=== PATIENT | male | born 1955 | race Asian ===

== ENCOUNTER 2022-04-09 05:20 | Emergency (ER) | payer OTHER ==
[~2022-04-09] VITALS: Ht 167.6 cm; Wt 70.5 kg
[2022-04-09] MEDS ORDERED: IBUPROFEN 600 MG TABLET PO ONE (06:45)
[2022-04-09] MEDS ORDERED: SODIUM CHLORIDE 0.9% 250 ML IRRIG SOLUTION BOTTLE IRRIG ONE (06:45)
[2022-04-09] MEDS ORDERED: PERTUSS(ACELL),DIPH,TET VAC/PF 0.5 ML SYRINGE IM. ONE (06:45)
[2022-04-09] MEDS ORDERED: LIDOCAINE 1% 10 ML VIAL ID ONE (08:15)
[2022-04-09 08:46] VITALS: BP 153/98
[2022-04-09] MEDS ORDERED: CEPH-558 PO (08:47)
[2022-04-09] MEDS ORDERED: HYDR-4723 PO (08:47)
== END 2022-04-09 09:06 | disposition home or self-care (01) ==
LOC: EMS 05:20
DX: S67.21XA Crushing injury of right hand, initial encounter (principal); S61.212A Laceration without foreign body of right middle finger without damage to nail, initial encounter; W23.0XXA Caught, crushed, jammed, or pinched between moving objects, initial encounter; Y93.89 Activity, other specified; Y92.89 Other specified places as the place of occurrence of the external cause; Y99.8 Other external cause status
CPT/HCPCS: 12001; 73110; 73130; 90471; 90715; 99284; J3490

== ENCOUNTER 2022-04-22 07:46 | Emergency (ER) | payer OTHER ==
[~2022-04-22] VITALS: Ht 167.6 cm; Wt 63.6 kg
[~2022-04-22 07:46] MED LIST: CEPH-558 PO; HYDR-4723 PO
[2022-04-22 07:54] VITALS: BP 148/92
[2022-04-22] MEDS ORDERED: SITA50 PO (07:57)
== END 2022-04-22 08:38 | disposition home or self-care (01) ==
LOC: EMS 07:47
DX: S61.212D Laceration without foreign body of right middle finger without damage to nail, subsequent encounter (principal); Z48.02 Encounter for removal of sutures; Z79.899 Other long term (current) drug therapy; W45.8XXD Other foreign body or object entering through skin, subsequent encounter
CPT/HCPCS: 99281; Z7502